=== PATIENT | female | born 1995 | race Caucasian/White ===

== ENCOUNTER 2018-10-08 19:00 | Emergency (ER) | payer SELFPAY ==
[~2018-10-08] VITALS: Ht 152.4 cm; Wt 40.8 kg
[2018-10-08 19:00] VITALS: BP_SYST 130
== END 2018-10-08 20:10 | disposition left against medical advice (07) ==
LOC: SED 19:00
DX: R53.1 Weakness (principal); R51 Headache; Z53.21 Procedure and treatment not carried out due to patient leaving prior to being seen by health care provider
CPT/HCPCS: 99283

== ENCOUNTER 2018-10-08 20:42 | Emergency (ER) | payer SELFPAY ==
[~2018-10-08] VITALS: Ht 152.4 cm; Wt 49.9 kg
== END 2018-10-08 21:25 | disposition left against medical advice (07) ==
LOC: SED 20:42
DX: R51 Headache (principal); Z53.21 Procedure and treatment not carried out due to patient leaving prior to being seen by health care provider
CPT/HCPCS: 99283